=== PATIENT | female | born 1960 | race African-American/Black ===

== ENCOUNTER 2017-01-28 19:14 | Emergency (ER) | payer OTHER ==
[~2017-01-28] VITALS: Ht 170.2 cm; Wt 77.2 kg
[~2017-01-28 19:14] MED LIST: MOTRIN800 MG PO; NAPROSYN500 MG PO; NAPROXEN500 MG PO; PREDNISONE20 MG PO
[2017-01-28 20:15] LABS: HEMATOCRIT 54.4 % (36.0-46.0); MCH 30.1 PG (29.0-34.0); MCHC 33.5 G/DL (30.0-36.0); MCV 89.9 FL (83-99); MEAN PLAT.VOLUME 13.6 uM^3 (9.5-12.4); PLATELET COUNT 223 K/uL (156-360); RBC DIS.WIDTH-SD 54.4 % (39-53); RED BLOOD COUNT 6.05 M/uL (3.80-5.20); WHITE BLOOD COUNT 12.6 K/uL (4.1-10.2)
[2017-01-28 20:23] LABS: CHLORIDE 103 mEq/L (99-109); POTASSIUM 3.2 mEq/L (3.7-5.4); SODIUM 137 mEq/L (136-147)
[2017-01-28 20:24] LABS: GLUCOSE 113 mg/dL (70-99)
[2017-01-28 20:26] LABS: ANION GAP 15 MEQ/L (2-14)
[2017-01-28 20:28] LABS: GFR ESTIMATE (CALCULATED) > 59 mL/min/
[2017-01-28 20:29] LABS: UREA NITROGEN (BUN) 7 mg/dL (9-23)
[2017-01-28 20:35] LABS: TROP-I INTERPRETATION NEGATIVE; TROPONIN-I 0.01 ng/mL (0.0-0.30)
[2017-01-28 21:57] LABS: TOTAL BILIRUBIN 0.8 mg/dL (0.0-1.0)
[2017-01-28 21:58] LABS: ALKALINE PHOSPHATASE 101 IU/L (3-129)
[2017-01-28 22:01] LABS: DIRECT BILIRUBIN 0.3 mg/dL (0.0-0.3)
[2017-01-28 22:02] LABS: LIPASE 78 U/L (1.0-51.0)
[2017-01-28] MEDS ORDERED: ZOFRAN ODT4 MG PO (22:15)
[2017-01-28] MEDS ORDERED: TRAZODONE HCL50 MG PO (22:15)
[2017-01-28] MEDS ORDERED: CATAPRES0.1 MG PO (22:15)
[2017-01-28] MEDS ORDERED: ZANTAC300 MG PO (22:15)
[2017-01-28 22:36] VITALS: BP 158/101
== END 2017-01-28 22:37 | disposition left against medical advice (07) ==
LOC: EME 19:14
DX: R10.13 Epigastric pain (principal); R07.2 Precordial pain; R11.2 Nausea with vomiting, unspecified; F11.23 Opioid dependence with withdrawal; E87.6 Hypokalemia; F17.200 Nicotine dependence, unspecified, uncomplicated; Z90.49 Acquired absence of other specified parts of digestive tract
CPT/HCPCS: 71020; 80048; 80076; 83690; 84484; 85027; 93005; 99281; 99284; J2270

== ENCOUNTER → 2017-07-02 | Outpatient (CLI) | payer OTHER ==
[~2017-07-02] MED LIST changes: +CATAPRES0.1 MG PO; +TRAZODONE HCL50 MG PO; +ZANTAC300 MG PO; +ZOFRAN ODT4 MG PO
== END | disposition home or self-care (01) ==
LOC: EKG 13:00
DX: I05.1 Rheumatic mitral insufficiency (principal); I07.1 Rheumatic tricuspid insufficiency; I09.89 Other specified rheumatic heart diseases
CPT/HCPCS: 93306